=== PATIENT | female | born 1965 | race Caucasian/White ===

== ENCOUNTER 2017-02-02 20:52 | Emergency (ER) | payer OTHER ==
[~2017-02-02] VITALS: Ht 162.6 cm; Wt 61.2 kg
[2017-02-02] MEDS ORDERED: ONDANSETRON ODT 4 MG TABLET (21:35)
[2017-02-02] MEDS ORDERED: FOLIC ACID 1 MG TABLET (21:35)
[2017-02-02] MEDS ORDERED: POTASSIUM CL ER 20 MEQ TABLET (21:35)
[2017-02-02] MEDS ORDERED: XIFAXAN 550 MG TABLET (21:35)
[2017-02-02] MEDS ORDERED: OXYCODONE (21:36)
--- NOTE | 2017-02-02 21:40 | NUR ---
Pt ambulated to room with steady gait. Pt c/o severe pain to extremities, R>L. and muscle cramping. Pt sts no relief with home medication. Sts unable to reach PMD, he is on vacation. Pt restless and tearful. Pt resting in position of comfort for self. Daughter at bedside. Awaiting further eval.
--- NOTE | 2017-02-02 23:10 | NUR ---
Dr. Stephen at bedside for MSE, awaiting further orders.
[2017-02-02] MEDS ORDERED: OXYCODONE HCL 5 MG TABLET PO ONE (23:30)
[2017-02-02] MEDS ORDERED: OXYCODONE HCL 5 MG TABLET ONE (23:58)
--- NOTE | 2017-02-03 00:04 | NUR ---
Self inflicted scratches to R. upper arm cleaned and dressing applied. Pt medicated for discomfort. Pt stable for discharge per MD. Pt and daughter given ACI. Both verbalized understanding of dc instructions. Pt ambulated out of er with steady gait and ride home.
[2017-02-03 00:06] VITALS: BP 138/77
== END 2017-02-03 00:06 | disposition home or self-care (01) ==
LOC: ER 20:52
DX: G89.29 Other chronic pain (principal); M79.2 Neuralgia and neuritis, unspecified; I50.9 Heart failure, unspecified; M06.9 Rheumatoid arthritis, unspecified; Z88.1 Allergy status to other antibiotic agents
CPT/HCPCS: A4663

== ENCOUNTER 2021-01-24 21:19 | Inpatient (IN) | payer OTHER ==
[~2021-01-24] VITALS: Ht 170.2 cm; Wt 58.1 kg
[~2021-01-24 21:19] MED LIST: FOLIC ACID 1 MG TABLET; ONDANSETRON ODT 4 MG TABLET; OXYCODONE; POTASSIUM CL ER 20 MEQ TABLET; XIFAXAN 550 MG TABLET
--- NOTE | 2021-01-24 21:34 | NUR ---
Pt c/o CP radiating to right side of neck and arm for [address]:03/01. A/O x4, no SOB or labored breathing, afebrile. Denies any GI/ distress. Clear speech, complete sentences.
--- NOTE | 2021-01-24 21:37 | NUR ---
Xray at bedside.
--- NOTE | 2021-01-24 21:38 | NUR ---
Dr. Arana at bedside, MSE in progress.
[2021-01-24] MEDS ORDERED: ASPIRIN 325 MG TABLET PO ONE (21:45)
[2021-01-24 21:48] LABS: HEMATOCRIT 36.2 % (31.2-41.9); MEAN CORPUSCULAR HEMOGLOBIN 34.3 uug (24.7-32.8); MEAN CORPUSCULAR VOLUME 100.5 fL (75.5-95.3); PLATELET COUNT (AUTO) 447 K/uL (179-408)
[2021-01-24 21:55] LABS: POTASSIUM 4.2 mmol/L (3.5-5.1)
[2021-01-24 22:07] LABS: BILIRUBIN,DIRECT 0.1 mg/dL (0.0-0.2); BILIRUBIN,TOTAL 0.4 mg/dL (0.2-1.0); TOTAL PROTEIN, SERUM 6.9 g/dL (6.4-8.2)
[2021-01-24] MEDS ORDERED: IV NORMAL SALINE 250 ML IV ONE (22:45)
[2021-01-24] MEDS ORDERED: CLON1TAB PO (22:47)
[2021-01-24] MEDS ORDERED: POTA10CA43 PO (22:47)
[2021-01-24] MEDS ORDERED: FLUT16SP16 NS (22:47)
[2021-01-24] MEDS ORDERED: METO50TA16 PO (22:47)
[2021-01-24] MEDS ORDERED: EZET10TA15 PO (22:47)
[2021-01-24] MEDS ORDERED: LEVO88TA5 PO (22:47)
[2021-01-24] MEDS ORDERED: HYDR200T81 PO (22:47)
[2021-01-24] MEDS ORDERED: LACO200T2 PO (22:47)
[2021-01-24] MEDS ORDERED: TOPI200T PO (22:47)
[2021-01-24] MEDS ORDERED: FURO20TA4 PO (22:47)
[2021-01-24] MEDS ORDERED: HYDR10TA PO (22:47)
[2021-01-24] MEDS ORDERED: PRED1TAB PO (22:47)
[2021-01-24] MEDS ORDERED: METF-441 PO (22:47)
[2021-01-24] MEDS ORDERED: AZAT50TA18 PO (22:47)
[2021-01-24] MEDS ORDERED: OXYC18CA PO (22:47)
[2021-01-24] MEDS ORDERED: CYCL5TAB PO (22:47)
[2021-01-24] MEDS ORDERED: DEXA0.5T15 PO (22:47)
[2021-01-24] MEDS ORDERED: RANO500T3 PO (22:47)
[2021-01-24] MEDS ORDERED: CYAN10006 IM (22:47)
[2021-01-24] MEDS ORDERED: FOLI1TAB94 PO (22:47)
[2021-01-24] MEDS ORDERED: OMEP40CA21 PO (22:47)
[2021-01-24] MEDS ORDERED: LEVE1000 PO (22:47)
--- NOTE | 2021-01-24 23:49 | NUR ---
Gave report to guillermo Jacobs RN.
[2021-01-25] MEDS ORDERED: IV NORMAL SALINE 250 ML IV ONE (00:30)
[2021-01-25] MEDS ORDERED: ONDANSETRON 4 MG/2 ML VIAL ONE (00:38)
--- NOTE | 2021-01-25 00:45 | NUR ---
Offered assistance when patient needed to go to restroom. Educated patient of her medical diagnosis and safety precautions but patient noted to be uncooperative and wanted to ambulate herself to the restroom and disconnected herself from the monitors.
[2021-01-25] MEDS ORDERED: levETIRAcetam 250 MG TABLET PO ONE (01:00)
[2021-01-25] MEDS ORDERED: TOPIRAMATE 100 MG TABLET PO ONE (01:00)
[2021-01-25] MEDS ORDERED: levETIRAcetam 250 MG TABLET ONE (01:13)
--- NOTE | 2021-01-25 02:02 | NUR ---
Pt. admitted to tele unit , under care of Dx: CP Belongs List completed
[2021-01-25] MEDS ORDERED: TOPIRAMATE 100 MG TABLET ONE (02:03)
== END 2021-01-25 02:20 | disposition left against medical advice (07) | DRG 313 ==
LOC: ER 21:21 → TELE3 23:55
PROVIDERS: ADMIT Internal Medicine; ATTEND Internal Medicine
DX: R07.9 Chest pain, unspecified (principal); M32.9 Systemic lupus erythematosus, unspecified; Z86.73 Personal history of transient ischemic attack (TIA), and cerebral infarction without residual deficits; I25.2 Old myocardial infarction; I50.9 Heart failure, unspecified; Z20.822 Contact with and (suspected) exposure to COVID-19
CPT/HCPCS: 36415; 70030-TC; 71045; 85025; 93005; G0378; J2405; J3490; J7050